=== PATIENT | female | born 1980 | race African-American/Black ===

== ENCOUNTER 2020-11-29 04:42 | Emergency (ER) | payer MEDICAID ==
[~2020-11-29] VITALS: Ht 167.6 cm; Wt 79.0 kg
[~2020-11-29 04:42] MED LIST: PROZAC; TOPAMAX; XANAX
[2020-11-29] MEDS ORDERED: KETOROLAC 30MG/ML VIAL IV STA (05:35)
[2020-11-29 05:36] LABS: CLARITY URINE CLOUDY (CLEAR); COLOR URINE YELLOW (YELLOW); KETONES URINE TRACE (NEGATIVE); LEUKOCYTE ESTERASE URINE 1+ (NEGATIVE); NITRITE URINE NEGATIVE (NEGATIVE); OCCULT BLOOD URINE NEGATIVE (NEGATIVE); PH URINE 5.5 (4.5-8.0); PROTEIN URINE NEGATIVE (NEGATIVE); SPECIFIC GRAVITY URINE 1.024 (1.005-1.030); UROBILINOGEN URINE 0.2 E.U./dL (0.2-1.0)
[2020-11-29 06:01] LABS: BASOPHILS % 0.6 % (0.0-2.0); EOSINOPHILS % 1.8 % (0.0-5.0); HEMATOCRIT. 34.1 % (36.0-48.0); HEMOGLOBIN. 11.3 g/dL (12.0-16.0); LYMPHOCYTES % 35.7 % (20.0-50.0); MEAN CORPUSCULAR HEMOGLOBIN 28.5 pg (28.0-32.0); MEAN PLATELET VOLUME 8.7 fl (7.4-10.4); MONOCYTES % 12.2 % (2.0-8.0); NEUTROPHILS % 49.7 % (40.0-76.0); PLATELET 278 x1000/uL (130-400); RED BLOOD CELL COUNT 3.97 mill/uL (4.2-5.4); RED CELL DISTRIBUTION WIDTH 14.9 % (11.6-14.6)
[2020-11-29 06:03] LABS: CHLORIDE 106 mEq/L (98-107)
[2020-11-29] MEDS ORDERED: LEVOFLOXACIN 750MG PREMIX 150 ML IV ONE (07:00)
[2020-11-29] MEDS ORDERED: IBUP-2028 PO (08:29)
[2020-11-29] MEDS ORDERED: LEVO750T46 PO (08:30)
[2020-11-29 08:45] VITALS: BP 100/57
[2020-11-29] MEDS ORDERED: IBUPROFEN 400MG TABLET PO ONE (08:45)
== END 2020-11-29 08:57 | disposition home or self-care (01) ==
LOC: ER 04:42
DX: N39.0 Urinary tract infection, site not specified (principal); F15.10 Other stimulant abuse, uncomplicated; J45.909 Unspecified asthma, uncomplicated; I10 Essential (primary) hypertension; F20.9 Schizophrenia, unspecified; Z90.49 Acquired absence of other specified parts of digestive tract
CPT/HCPCS: 36415; 80053; 81003; 85025; 87086; 96365; 96375; 99284; J1885; J1956; Z7610